=== PATIENT | male | born 1980 | race Caucasian/White ===

== ENCOUNTER 2023-08-08 19:36 | Emergency (ER) | payer OTHER, SELFPAY ==
[2023-08-08 20:12] VITALS: BP 192/99; PULSE 82; RESP 16; TEMP 36.7; O2SAT 99; BMI 27.2
--- NOTE | 2023-08-08 20:52 | ED_ITS ---
HPI - Wound/Laceration General: Chief Complaint: Wound/Laceration Stated Complaint: cut finger Time Seen by Provider: 08/08/23 20:14 History of Present Illness: 43-year-old male patient comes in today for complaints of injury to the dorsal left thumb. On exam patient has a 2 cm laceration to the dorsal aspect of the left thumb. No tendon injury is noted. No foreign body is noted. No damage to the nail is noted. Patient reports around 5:00 this evening he was skinning and dressing out a deer when he excellently cut himself. Patient cannot recall his last tetanus shot but believes its been 10 years ago. Patient denies any chronic medical problems or routine medications. Review of Systems General: Reports: 10 or more systems reviewed and unremarkable except in HPI and below Skin/Breast: Reports: new lesions (Laceration finger) Physical Exam Const: COMMON NORMALS: alert HENMT: COMMON NORMALS: normocephalic HEAD & SCALP: normocephalic Neck/C-Spine: COMMON NORMALS: full ROM Resp: COMMON NORMALS: normal respiratory effort Cardio: COMMON NORMALS: regular rate RATE: regular rate Back/Pelvis: COMMON NORMALS: thoracic and lumbar spine normal to inspection Extremity: LEFT UPPER EXTREMITY: Yes hand & digits (2 cm curved laceration left dorsal thumb) Neuro: SENSORIUM/ORIENTATION: Yes alert Skin: TRAUMA: laceration (Curved laceration 2 cm left thumb) Procedures Laceration Laceration 1: Site: hand Side (If applicable): left Size (cm): 2 Description: linear Depth: simple, single layer Local Anesthetic: lidocaine 2% Amount of anesthesia used (mL): 2 Pre-repair: wound explored and irrigated extensively Skin layer closed with: nylon Size (cm): 3-0 Number of sutures: 2 Technique: horizontal mattress Course Vital Signs: Vital signs: Vital Signs Temperature 98.1 F 08/08/23 20:12 Pulse Rate 82 08/08/23 20:12 Respiratory Rate 16 08/08/23 20:12 Blood Pressure 192/99 08/08/23 20:12 Pulse Oximetry 99 08/08/23 20:12 Oxygen Delivery Me thod Room Air 08/08/23 20:12 MDM - Wound/Laceration Medical Decision Making Patient comes in for injury to the left thumb. On exam patient has a 2 cm laceration to the dorsal thumb. Patient has normal range of motion of the finger. No foreign body or nail injury is noted. Vital signs are normal except for some elevation of blood pressure. Differential diagnosis includes tendon injury, foreign body, fracture, laceration. No signs of serious injury is noted. Patient has normal sensation and range of motion of the finger. Wound was repaired. Patient's tetanus was updated. Patient will continue on antibiotics. Patient reported understanding of care plan and need for follow-up or return to the ER. No radiology studies performed this visit Discharge Plan Discharge Patient Disposition: Home Clinical Impression: Laceration of thumb Qualifiers: Encounter type: initial encounter Damage to nail status: without damage Foreign body presence: without foreign body Laterality: left Qualified Code(s): S61.012A - Laceration without foreign body of left thumb without damage to nail, initial encounter Condition: Stable Prescriptions: New amoxicillin-pot clavulanate 875-125 mg tablet 1 tab PO BID Qty: 14 0RF Discharge Orders: Discharge ED (Routine); Ordered 08/08/23 Ordered By: Dayton Moon Discharge Diet: Usual diet Discharge Activity: Increase activity as tolerated Patient Instructions: Finger Laceration (ED) Activity Restrictions/Additional Instructions: Keep wound clean and dry. Is very important keep the wound dry and clean as much as possible for the first 48 hours. After that you can get the wound wet and gentle wash it but then dry thoroughly and cover to protect and keep it clean. Sutures need to come out in 7 to 10 days. Follow-up with primary care for further instructions. Return to ED for new concerns. Take antibiotics as directed. Coding Level of Care Code ED Surgical Physician Assistant for Marcos Monzon
[2023-08-08] MEDS: tetanus-dipt-pertussis 0.5 mL SDV IM (21:23)
[2023-08-08] MEDS: amoxicillin-clav 875-125 mg Tablet 1 TAB PO (21:23)
--- NOTE | 2023-08-08 21:38 | PC.NURSE ---
Lac cleaned with 3- saline flushed, 4x4s, telfa applied to site and coban wrapped post suture placement.
[2023-08-08 21:39] VITALS: RESP 18; O2SAT 99
== END 2023-08-08 21:41 | disposition home or self-care (01) ==
PROVIDERS: Emergency Provider Nurse Practitioner Family
DX: S61.012A Laceration without foreign body of left thumb without damage to nail, initial encounter (principal); W26.0XXA Contact with knife, initial encounter; Z23 Encounter for immunization
CPT/HCPCS: 12001; 90471; 90715; 99283